=== PATIENT | female | born 1975 | race Caucasian/White ===

== ENCOUNTER 2025-01-07 10:15 | Outpatient (AMB) | payer OTHER, SELFPAY ==
--- NOTE | 2025-01-07 10:17 | MHC.PC.OV ---
Vital Signs 01/07/25 10:34 Height 5 ft 6 in Weight 187 lb 4 oz BMI 30.2 BP 118/76 Blood Pressure Location Lt brachial Position Sitting Pulse 77 Pulse Source Pulse Oximeter Pulse Oximetry (%) 98 Oxygen Delivery Method Room Air Intake Visit Reasons: establish care Technical Service Rep Required: No Accompanied by: Self / Same As Patient Allergies adhesive tape Allergy (Mild, Verified 01/07/25 11:09) Hives acetaminophen [From Percocet] Adverse Reaction (Verified 01/07/25 11:09) upset stomach oxycodone [From Percocet] Adverse Reaction (Verified 01/07/25 11:09) upset stomach Medication List - Last Reconciled 01/07/25 by Kwame Mcneil MD acetaminophen-codeine 300-30 mg 1 tab PO BID PRN azelaic acid 15% 1 appl topical BID betamethasone dipropionate 0.05% 1 appl topical DAILY rabjtsozqp-rybhuwnhrg-xwi-cod 68-086-35-30 mg 1 cap PO Q4H PRN gabapentin 100 mg PO TID hydrocortisone 2.5% 1 appl topical BID PRN hydroxyzine HCl 25 mg PO TID PRN ketoconazole 2% 1 appl topical DAILY lidocaine 5% 1 patch topical DAILY lorazepam 1 mg PO DAILY PRN naloxone 4 mg/actuation (Narcan) 4 mg intranasal Q2M PRN norethindrone (contraceptive) (Elzbieta) 0.35 mg PO DAILY propranolol 40 mg PO ONCE sertraline (Zoloft) 100 mg PO DAILY sumatriptan succinate 6 mg subcut ONCE PRN ubrogepant (Ubrelvy) 100 mg PO ONCE PRN Tobacco use date assessed: 01/07/25 Dental Screening Dental Screen Date: 01/07/25 Did you have a dental visit in the last 12 months?: Yes Did you have a dental problem in the last 6 months where you did not have access to dental care?: No Was dental information given to patient?: Patient has dentist HPI establish care HPI Details Patient comes in today to establish care - is a new patient to the practice States that her previous PCP recently retired from active practice States that she currently feels okay She denies any headaches or dizziness Denies any chest pains, no increased shortness of breath No nausea/vomiting, no abdominal pain No change in bowel habits noted She denies any acute urinary symptoms States that she has a history of anxiety and has been on Lorazepam for years She also reports (+) history of severe migraine headaches that requires medicating with Tylenol with codeine for her severe headaches States that she will need majority of her Rx refilled She is following up with [facility] for her migraine and is treated with Botox injections as well She goes to [facility] for her yearly gynecology exam and pap smear and states that she just had her last visit with them a couple of months ago in November 2024 She also goes to [facility] for her annual mammogram and will be due for her next mammogram in February 2025 - will need this ordered She has never had a screening colonoscopy done in the past [facility] Medical History (Updated 01/08/25 @ 02:21 by Kwame Mcneil MD) Obesity (BMI 30-39.9) Cervical disc disease Anxiety Dermatofibroma of right thigh Fibromyalgia Migraine Surgical History (Updated 01/07/25 @ 12:42 by Kwame Mcneil MD) History of wisdom tooth extraction History of surgical removal of skin lesion History of umbilical hernia repair History of tonsillectomy History of fusion of cervical spine Family History (Updated 01/07/25 @ 10:51 by ADDIE Walker) Other Autism Melanoma Social History (Updated 01/07/25 @ 12:47 by Kwame Mcneil MD) Housing: Condominium Patient Tobacco Use Status: Former Tobacco user e-Cigarette/Vaping Use: Never Used Substance Use Type: Other Substance Use Type Other:: Medical Marijuana and Gummies (not recreational) Substance Use Frequency: Daily Last Used Substance: Days (ago) Currently Displaying Signs/Symptoms of Drug Intoxication Withdrawal: No Within the last 12 months, any problems due to past substance use: None Current Diet: Vegetarian service: No Current occupational status: employed Cognitive needs: No Hearing needs: No Vision needs: No Questionnaire PHQ-9 Over the last 2 weeks, how often have you been bothered by any of the following problems? 1. Little interest or pleasure in doing things: several days 2. Feeling down, depressed, or hopeless: not at all 3. Trouble falling or staying asleep, or sleeping too much: several days 4. Feeling tired or having little energy: not at all 5. Poor appetite or overeating: not at all 6. Feeling bad about yourself - or that you are a failure or have let yourself or your family down: not at all 7. Trouble concentrating on things, such as reading the newspaper or watching television: not at all 8. Moving or speaking so slowly that other people could have noticed. Or the opposite - being so fidgety or restless that you have been moving around a lot more than usual: not at all 9. Thoughts that you would be better off or of hurting yourself in some way: not at all Total score: 2 Depression Screening Interpretation: Negative (is on Rx) Depression Screening Done: Yes 93983 - PHQ-9 Billing: Yes Source: Developed by Drs. Eliseo Casey, Cary Cordova, Prakash Savage and colleagues, with an educational anne from [employer]. Thrive Questionnaire Date Thrive assessed: 01/07/25 I am a: Patient What is your living situation today?: I have a steady place to live Within the past 12 months, did the food you bought not last and you didn't have the money to get more?: Never true Within the past 12 months, did you worry whether your food would run out before you got money to buy more?: Never true Do you have trouble paying for medicines?: No Do you have trouble getting transportation to medical appointments?: No Do you have trouble paying your heating and electricity bill?: No Do you have trouble taking care of your child, family member or friend?: No Do you have trouble with day-to-day activities such as bathing, preparing meals, shopping, managing finances, etc.?: No Are you currently unemployed and looking for a job?: No Are you interested in more education?: No Please select the resources that you would like help with: None Currently or been in a relationship where the following occur: I choose not to answer THRIVE Score: 0 AUDIT C Alcohol Use Questionnaire (AUDIT-C) 1. How often do you have a drink containing alcohol?: Never 3. How often do you have six or more drinks on one occasion?: Never Total Score: 0 Score Reviewed/Action Taken: Yes DANILO-7 AMB Questionnaire DANILO-7 Date DANILO - 7 assessed: 03/04/25 Feeling nervous, anxious, or on edge: 1 = Several days Not being able to stop or control worryin = More than half the days Worrying too much about different things: 0 = Not at all Trouble relaxin = Not at all Being so restless that it is hard to sit still: 0 = Not at all Becoming easily annoyed or irritable: 0 = Not at all Feeling afraid as if something awful might happen: 0 = Not at all Total DANILO-7 score (0-4 normal; 5-9 mild; 10-14 moderate; 15-21 severe): 3 Source: Developed by Drs. Eliseo Casey, Cary Cordova, Prakash Savage and colleagues, with an educational anne from [employer]. Review of Systems Const Denies chills, Denies fatigue, Denies fever(s), Reports headache(s) (migraine) and Denies malaise Eyes Denies blurry vision, Denies change in vision, Denies irritation and Denies itchy eyes ENT Denies dysphagia, Denies dizziness, Denies otalgia, Reports headache(s) (migraine), Denies nasal congestion, Reports neck pain (chronic), Denies odynophagia, Denies sinus pain and Denies sore throat Card Denies chest pain, Denies rapid heart rate, Denies irregular heart rhythm, Denies palpitations and Denies dyspnea Resp Denies chest congestion, Denies cough, Denies dyspnea and Denies wheezing GI Denies abdominal pain, Denies bloating, Denies constipation, Denies dysphagia, Denies heartburn, Denies diarrhea, Denies nausea, Denies odynophagia and Denies vomiting Denies hematuria, Denies urinary frequency, Denies dysuria, Denies urinary incontinence and Denies urinary urgency Musc Denies back pain, Reports myalgias (diffuse - due to her fibromyalgia), Denies arthralgias, Denies joint swelling, Denies muscle weakness and Reports neck pain (chronic) Skin/Breast Denies breast pain, Denies breast mass, Denies change in pigmentation, Denies lesions, Denies rash and Denies unusual bruising Neuro Denies dizziness, Reports headache(s) (migraine) and Denies paresthesias Psych Reports anxiety and Denies depression Endo Denies fatigue and Denies palpitations James/Lymph Denies easy bruising Aller/Immun Denies itchy eyes and Denies wheezing Physical exam (Primary Care) Vital Signs: Last Vital Signs Pulse 77 01/07/25 10:34 BP 118/76 01/07/25 10:34 Pulse Ox 98 01/07/25 10:34 Oxygen Delivery Method Room Air 01/07/25 10:34 BMI result Body Mass Index 30.2 Tobacco/Smoking Status: Tobacco use Status Tobacco use date assessed 01/07/25 01/07/25 10:18 Patient Tobacco Use Status Former Tobacco user 01/07/25 10:53 e-Cigarette/Vaping Use Never Used 01/07/25 10:53 PHQ-9: PHQ-9 Score PHQ-9: Total score 2 01/07/25 12:50 Depression Screening Interpretation: Negative (is on Rx) Thrive Assessment: Date of Thrive Assessment Date Thrive assessed 01/07/25 01/07/25 10:18 Currently or been in a relationship where the following occur: I choose not to answer Const General: no acute distress, alert and awake Orientation/consciousness: patient oriented x3 HENMT Head: Yes normocephalic and Yes atraumatic Ears: external ears normal, TM's normal bilaterally and EAC's normal General nose exam: No nasal discharge present Face and sinus: Yes normal facial exam and Yes sinuses nontender Teeth and gingiva: dentition normal Throat: Yes posterior oropharynx normal and Yes tonsils normal (no TP congestion) Eyes Eyelids: Yes eyelids normal Conjunctivae: conjunctivae normal Pupils: Equal, round and reactive pupils present EOM: EOMs intact bilaterally Neck Neck: No lymphadenopathy and Yes tender Thyroid: Thyroid normal Resp Auscultation: clear to auscultation bilaterally, no rales and no wheezes Cardio Rate: regular rate Rhythm: regular rhythm Heart sounds: no murmurs GI Palpation (GI): Soft to palpation, nontender and No hepatosplenomegaly present Auscultation: normal bowel sounds General: Yes no CVA tenderness Back/Spine/Pelvis Back: no CVA tenderness Cervical Spine: Cervical spine tenderness Thoracic/Lumbar Spine: No lumbar spinal tenderness Skin Lesions: no lesions Rashes: no rashes Neuro General: patient oriented x3, moves all extremities, no focal motor deficits and CN's II-XI intact bilaterally Cranial nerves: Yes Equal, round and reactive pupils present Cognition (Neuro): normal cognition Gait exam (Neuro): Normal gait present Extrem General: Yes no clubbing, cyanosis or edema Coding Level of Care Code New Pt Prev Care 40-64y(62391) Diagnoses Annual physical exam Z00.00 Migraine without status migrainosus, not intractable, unspecified migraine type G43.909 Intractability: not intractable Migraine type: unspecified Status migrainosus presence: without status migrainosus Cervical disc disease M50.90 Fibromyalgia M79.7 Anxiety F41.9 Obesity (BMI 30-39.9) E66.9 Colon cancer screening Z12.11 Additional Codes PHQ-9 - 51494 - PHQ-9 Billing: Yes ([id number]) Assessment & Plan Assessment & Plan (1) Annual physical exam: Code(s): Z00.00 - Encounter for general adult medical examination without abnormal findings Category: Medical Plan: Will have patient get her labs done in 3 months just before she returns for her next follow up appt She goes to [facility] for her yearly gynecology exam and pap smear and states that she just had her last visit with them a couple of months ago in November 2024 She also goes to [facility] for her annual mammogram and will be due for her next mammogram in February 2025 - will need this ordered She has never had a screening colonoscopy done in the past (2) Migraine: Code(s): G43.909 - Migraine, unspecified, not intractable, without status migrainosus Category: Medical Qualifiers: Intractability: not intractable Migraine type: unspecified Status migrainosus presence: without status migrainosus Qualified Code(s): G43.909 - Migraine, unspecified, not intractable, without status migrainosus Plan: Continue Tylenol with codeine 300-30 mg BID PRN, Fioricet with codeine 47-139-90-30 mg 1 capsule Q 4 to 6 hours PRN, Propranolol 40 mg QD, Sumatriptan 6 mg nasal spray PRN and Ubrelvy 100 mg PRN Patient also gets Botox injections from neurology regularly Follow up with neurology as scheduled (3) Cervical disc disease: Code(s): M50.90 - Cervical disc disorder, unspecified, unspecified cervical region Category: Medical Plan: (+) Hx of anterior cervical fusion from C4 to C7 Continue Gabapentin 100 mg TID and Lidocaine 5% patch QD PRN (4) Fibromyalgia: Code(s): M79.7 - Fibromyalgia Category: Medical Plan: Continue Gabapentin 100 mg TID (5) Anxiety: Code(s): F41.9 - Anxiety disorder, unspecified Category: Medical Plan: Continue Hydroxyzine 25 mg TID PRN, Lorazepam 1 mg QD PRN and Sertraline 100 mg QD (6) Obesity (BMI 30-39.9): Code(s): E66.9 - Obesity, unspecified Category: Medical Plan: Reinforced diet; exercise and weight loss are unrealistic at this time given patient's physical issues (7) Colon cancer screening: Code(s): Z12.11 - Encounter for screening for malignant neoplasm of colon Category: Medical Plan: Will refer her to GI for screening colonoscopy - this will be her index screening Plan Follow up in 3 months Orders: Orders Complete Blood Count Auto Diff 3 Months D64.9 - Anemia, unspecified, Z00.00 - Encounter for general adult medical examination without abnormal findings UA CC w/rflx Micro + Cult 3 Months R30.0 - Dysuria, Z00.00 - Encounter for general adult medical examination without abnormal findings Vitamin B12 and Folate 3 Months E53.8 - Deficiency of other specified B group vitamins, Z00.00 - Encounter for general adult medical examination without abnormal findings MM tomosynthesis [place] 0304 Z12.31 - Encounter for screening mammogram for malignant neoplasm of breast Comprehensive [place]. Panel Fast 3 Months E78.00 - Pure hypercholesterolemia, unspecified, Z00.00 - Encounter for general adult medical examination without abnormal findings Lipid Panel 3 Months E78.00 - Pure hypercholesterolemia, unspecified, Z00.00 - Encounter for general adult medical examination without abnormal findings TSH reflex Free T4 3 Months E78.00 - Pure hypercholesterolemia, unspecified, Z00.00 - Encounter for general adult medical examination without abnormal findings Vitamin D 25-OH Total 3 Months E55.9 - Vitamin D deficiency, unspecified, Z00.00 - Encounter for general adult medical examination without abnormal findings Referrals Gastroenterology Referral Z12.11 - Encounter for screening for malignant neoplasm of colon Medications: New acetaminophen-codeine 300-30 mg 1 tab PO BID PRN 60 tabs 0RF severe migraine headaches 30 days G43.909 - Migraine, unspecified, not intractable, without status migrainosus gabapentin 100 mg PO TID 90 caps 2RF 30 days lidocaine 5% leave on most painful area for up to 12 hrs 1 patch topical DAILY PRN 30 ea 2RF pain 30 days sertraline (Zoloft) 100 mg PO DAILY 90 tabs 0RF 90 days nycihoaszi-lqzheqeaup-cac-cod 45-016-54-30 mg 1 cap PO Q4-6H PRN 60 caps 1RF headaches hydroxyzine HCl 25 mg PO TID PRN 90 tabs 2RF anxiety 30 days lorazepam 1 mg PO DAILY PRN 30 tabs 0RF anxiety 30 days propranolol 40 mg PO DAILY 90 tabs 1RF 90 days
[2025-01-07 10:34] VITALS: BP 118/76; PULSE 77; O2SAT 98; BMI 30.2
--- OUTSIDE RECORDS SUMMARY | 2025-01-07 12:24 | XMS_ITS | Clinical Summary ---
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 3 Active betamethasone dipropionate (DIPROSONE) 0.05 % ointment APPLY A SMALL AMOUNT TWICE A DAY APPLY TO LEFT EYELID 3 Active butalbital-acetami nophen-caffeine 50-300-40 mg capsule TAKE 1 CAPSULE BY MOUTH EVERY 4 HOURS NEEDED FOR MIGRAINE HEADACHE 3 Active diclofenac potassium 50 mg powder in packet Take 1 packet by mouth daily as needed (Migraine). No more than 4 times per day 3 Active gabapentin (NEURONTIN) 300 mg capsule Take 3 capsules (900 mg total) by mouth 3 (three) times a day. 3 Active hydrocortisone (WESTCORT) 0.2 % cream APPLY SPARINGLY TO AFFECTED AREA TWICE A DAY 3 Active hydrOXYzine HCL (ATARAX) 25 mg tablet TAKE 1 TABLET BY MOUTH TWICE A DAY NEEDED 3 Active norethindrone (Incassia) 0.35 mg tablet Take 1 tablet (0.35 mg total) by mouth daily. 3 Active ketoconazole (NIZORAL) 2 % cream APPLY A SMALL AMOUNT ONCE A DAY 3 Active lidocaine (LIDODERM) 5 % patch APPLY 1 PATCH TOPICALLY AND LEAVE ON FOR 12 HOURS, THEN 12 HOURS OFF 3 Active LORazepam (ATIVAN) 1 mg tablet Take 0.5 mg by mouth 2 (two) times a day as needed. 3 Active methylPREDNISolone (MEDROL) 4 mg tablet follow package directions 3 Active naproxen sodium (ANAPROX) 550 mg tablet Take 1 tablet (550 mg total) by mouth 2 (two) times a day as needed. for pain 3 Active neomycin-bacitracn Zn-polymyxnB 3.5-500-10,000 rv-pdjk-vlqz ointment APPLY A SMALL AMOUNT THREE TIMES A DAY 3 Active ondansetron ODT (ZOFRAN-ODT) 4 mg disintegrating tablet DISSOLVE 1 TABLET ON THE TONGUE EVERY 6 TO 8 HOURS FOR NAUSEA AND VOMITING 3 Active propranoloL (INDERAL) 40 mg tablet Take 1 tablet (40 mg total) by mouth 3 (three) times a day as needed. 3 Active lasmiditan (Reyvow) 100 mg tablet Take 1 tablet by mouth daily as needed. 3 Active rizatriptan (MAXALT) 10 mg tablet Take 1 tablet (10 mg total) by mouth daily as needed for migraine. May repeat in 2 hours if needed. Do not take together with sumatriptan. 3 Active sertraline (ZOLOFT) 100 mg tablet Take 1 tablet (100 mg total) by mouth daily. 3 Active SUMAtriptan (IMITREX) 6 mg/0.5 mL subcutaneous solution Inject 0.5 mL (6 mg total) under the skin daily as needed (Migraine). 3 Active ubrogepant (Ubrelvy) 100 mg tablet Take 1 tablet by mouth daily as needed (Migraine). Can take second tablet two hours later if headache persists. No more than 2 in 24 hours or 4 in 7 days. 3 Active Active Problems Problem Noted Date Diagnosed Date Bilateral occipital neuralgia 06/27/2023 Intractable chronic migraine without aura and with status migrainosus 02/17/2023 Social History Tobacco Use Types Packs/Day Years Used Date Smoking Tobacco: Never Assessed Comments Unknown Sex and Gender Information Value Date Recorded Sex Assigned at Not on file Legal Sex Female 6:44 PM EST Gender Identity Not on file Sexual Orientation Not on file Obstetrics History Last Filed Vital Signs Vital Sign Reading Time Taken Comments Blood Pressure 114/84 09/03/2024 1:03 PM EDT Pulse 72 09/03/2024 1:03 PM EDT Temperature - - Respiratory Rate - - Oxygen Saturation - - Inhaled Oxygen Concentration - - Weight - - Height - - Body Mass Index - - Plan of Treatment Health Maintenance Due Date Last Done Comments Breast Cancer Screening 1977 DTaP,Tdap,and Td Vaccines (1 - Tdap) 02/13/1996 Hepatitis B Vaccines (1 of 3 - 19+ 3-dose series) 02/13/1996 Cervical Cancer Screening: P ap Smear 1998 Colorectal Cancer Screening: Colonoscopy 10/08/2022 Depression Screening 10/08/2022 HIV Screening 10/08/2022 Hepatitis C Screening 10/08/2022 Social Influencers of Health Screening 10/08/2022 COVID-19 Vaccine (2023-2 5 season) 2024 Influenza Vaccine (#1) 2024 HIB Vaccines Aged Out No longer eligi ble based on patient's age to complete this topic HPV Vaccines Aged Out No longer eligi ble based on patient's age to complete this topic Hepatitis A Vaccines Aged Out No long er eligible based on patient's age to complete this topic IPV Vaccines Aged Out No longer eligi ble based on patient's age to complete this topic MMR Vaccines Aged Out No longer eligi ble based on patient's age to complete this topic Meningococcal ACWY Vaccine Aged Out N o longer eligible based on patient's age to complete this topic Meningococcal B Vacine Aged Out No lo nger eligible based on patient's age to complete this topic Pneumococcal Vaccine: Pediat rics (0 to 5 Years) and At-Risk Patients (6 to 64 Years) Aged Out No longer eligible b ased on patient's age to complete this topic RSV Immunization Patients Un jarod 20 months Aged Out No longer eligible b ased on patient's age to complete this topic Varicella Vaccines Aged Out No longer eligible based on patient's age to complete this topic
--- OUTSIDE RECORDS SUMMARY | 2025-01-07 12:24 | XMS_ITS | Clinical Summary ---
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 0 12/12/2022 Active hydrocortisone (WESTCORT) 0.2 % cream APPLY SPARINGLY TO AFFECTED AREA TWICE A DAY 0 12/22/2022 Active hydrOXYzine (ATARAX) 25 MG tablet TAKE 1 TABLET BY MOUTH TWICE A DAY NEEDED 0 01/09/2023 Active ketoconazole (NIZORAL) 2 % cream APPLY A SMALL AMOUNT ONCE A DAY 0 01/10/2023 Active Reyvow 100 MG TABS Take 1 tablet by mouth daily as needed. 0 12/19/2022 Active lidocaine (LIDODERM) 5 % APPLY 1 PATCH TOPICALLY AND LEAVE ON FOR 12 HOURS, THEN 12 HOURS OFF 0 01/31/2023 Active LORazepam (ATIVAN) 1 MG tablet Take 0.5 mg by mouth 2 (two) times a day as needed. 0 01/10/2023 Active naproxen sodium (ANAPROX) 550 MG tablet Take 1 tablet (550 mg total) by mouth 2 (two) times a day as needed. for pain 0 01/10/2023 Active Hquerwxr-Gctahooowm-Kh lymyxin ([employer] Antibiotic) 3.5-400-5000 OINT APPLY A SMALL AMOUNT THREE TIMES A DAY 0 01/12/2023 Active Incassia 0.35 MG tablet Take 1 tablet (0.35 mg total) by mouth daily. 0 12/03/2022 Active ondansetron (ZOFRAN-ODT) 4 MG disintegrating tablet DISSOLVE 1 TABLET ON THE TONGUE EVERY 6 TO 8 HOURS FOR NAUSEA AND VOMITING 0 12/16/2022 Active propranolol (INDERAL) 40 MG tablet Take 1 tablet (40 mg total) by mouth 3 (three) times a day as needed. 0 12/28/2022 Active sertraline (ZOLOFT) 100 MG tablet Take 1 tablet (100 mg total) by mouth daily. 0 02/08/2023 Active Acetaminophen-Codeine 300-30 MG per tablet TAKE 1 TABLET BY MOUTH THREE TIMES A DAY NEEDED FOR PAIN 0 01/19/2023 Active Diclofenac Potassium,Migraine, (Cambia) 50 MG PACKIndications:Intrac table chronic migraine without aura and with status migrainosus Take 1 packet by mouth daily as needed (Migraine). No more than 4 times per day 9 each 1 02/16/2023 Active Atogepant (Qulipta) 60 MG TABSIndications:Intrac table migraine without aura and without status migrainosus Take 1 tablet by mouth daily. 30 tablet 2 08/14/2023 Active Ubrelvy 100 MG TABSIndications:Migrai ne variant TAKE 1 TABLET BY MOUTH DAILY NEEDED (MIGRAINE). CAN TAKE SECOND TABLET TWO HOURS LATER IF HEADACHE PERSISTS. NO MORE THAN 2 IN 24 HOURS OR 4 IN 7 DAYS. 14 tablet 2 04/02/2024 Active SUMAtriptan Succinate (IMITREX) 6 MG/0.5ML SOAJIndications:Intrac table migraine without aura and without status migrainosus INJECT 0.5 ML (6 MG TOTAL) UNDER THE SKIN DAILY NEEDED. 5 mL 2 06/05/2024 Active Active Problems Problem Noted Date Diagnosed Date Bilateral occipital neuralgia 06/27/2023 Intractable chronic migraine without aura and with status migrainosus 02/17/2023 Social History Tobacco Use Types Packs/Day Years Used Date Smoking Tobacco: Never Assessed Sex and Gender Information Value Date Recorded Sex Assigned at Not on file Gender Identity Not on file Sexual Orientation Not on file Job Start Date Occupation Industry Not on file Not on file Not on file Last Filed Vital Signs Vital Sign Reading Time Taken Comments Blood Pressure 114/84 09/03/2024 1:03 PM EDT Pulse 72 09/03/2024 1:03 PM EDT Temperature - - Respiratory Rate - - Oxygen Saturation 98% 09/03/2024 1:03 PM EDT Inhaled Oxygen Concentration - - Weight - - Height - - Body Mass Index - - Plan of Treatment Health Maintenance Due Date Last Done Comments Hepatitis B Vaccines (1 of 3 - 3-dose series) 1977 Hepatitis C Screening 1977 COVID-19 Vaccine (#1) 1977 Depression Screening 1989 Preventative Health Evaluation 1995 Cervical Cancer Screening (P ap Smear) 1998 DTap / Tdap / Td (2 - Td or Tdap) 10/03/2020 010 Colon Cancer Screening (Colonoscopy) 2022 Influenza Vaccine (#1) 2024 08/21/2018 Pneumococcal Vaccine Aged Out No long er eligible based on patient's age to complete this topic RSV Ped < 20 months Aged Out No longe r eligible based on patient's age to complete this topic
== END 2025-01-07 11:42 | disposition home or self-care (01) ==
PROVIDERS: Visit Provider Internal Medicine
DX: Z00.00 Encounter for general adult medical examination without abnormal findings (principal); G43.909 Migraine, unspecified, not intractable, without status migrainosus; E66.9 Obesity, unspecified; Z68.30 Body mass index [BMI] 30.0-30.9, adult; M50.90 Cervical disc disorder, unspecified, unspecified cervical region; M79.7 Fibromyalgia; F41.9 Anxiety disorder, unspecified; Z12.11 Encounter for screening for malignant neoplasm of colon

== ENCOUNTER → 2025-01-07 10:15 | Outpatient (BNVA) | payer OTHER, SELFPAY | PROVIDERS: Visit Provider Internal Medicine | DX: Z00.00 Encounter for general adult medical examination without abnormal findings (principal); G43.909 Migraine, unspecified, not intractable, without status migrainosus; M50.90 Cervical disc disorder, unspecified, unspecified cervical region; M79.7 Fibromyalgia; F41.9 Anxiety disorder, unspecified; E66.9 Obesity, unspecified | CPT/HCPCS: 96127; 99386 ==

== ENCOUNTER 2025-06-03 10:43 | Outpatient (AMB) | payer OTHER, SELFPAY ==
--- NOTE | 2025-06-03 10:45 | MHC.PC.OV ---
Vital Signs 06/03/25 10:46 Height 5 ft 6 in Weight 188 lb BMI 30.3 BP 116/78 Blood Pressure Location Lt brachial Position Sitting Pulse 87 Pulse Source Pulse Oximeter Pulse Oximetry (%) 96 Oxygen Delivery Method Room Air Intake Visit Reasons: 3 month f/u Almond Huller Required: No Accompanied by: Self / Same As Patient Allergies adhesive tape Allergy (Mild, Verified 06/03/25 11:02) Hives acetaminophen (From Percocet) Adverse Reaction (Verified 06/03/25 11:02) upset stomach oxycodone (From Percocet) Adverse Reaction (Verified 06/03/25 11:02) upset stomach Medication List - Last Reconciled 06/03/25 by Kwame Mcneil MD acetaminophen-codeine 300-30 mg 1 tab PO BID PRN 30 days azelaic acid 15% 1 appl topical BID betamethasone dipropionate 0.05% 1 appl topical DAILY waigknakua-cszqcmbvzv-shs-cod 12-980-80-30 mg 1 cap PO Q4-6H PRN gabapentin 300 mg PO TID hydrocortisone 2.5% 1 appl topical BID PRN hydroxyzine HCl 25 mg PO TID PRN 30 days ketoconazole 2% 1 appl topical DAILY lidocaine 5% 1 patch topical DAILY PRN 30 days lorazepam 1 mg PO DAILY PRN 30 days naloxone 4 mg/actuation (Narcan) 4 mg intranasal Q2M PRN norethindrone (contraceptive) (Elzbieta) 0.35 mg PO DAILY propranolol 40 mg PO DAILY 90 days sertraline (Zoloft) 100 mg PO DAILY 90 days sumatriptan succinate 6 mg subcut ONCE PRN ubrogepant (Ubrelvy) 100 mg PO ONCE PRN Tobacco use date assessed: 06/03/25 Dental Screening Dental Screen Date: 06/03/25 Did you have a dental visit in the last 12 months?: Yes Did you have a dental problem in the last 6 months where you did not have access to dental care?: No Was dental information given to patient?: Patient has dentist HPI 3 month f/u HPI Details Patient comes in today for her follow up visit States that she feels okay She denies any increased headaches or dizziness lately - states that her current migraine meds (Ubrelvy, Fioricet, Propranolol and Imitrex injections) help keep her headaches well-managed/controlled She continues to follow up with her neurologist (Dr. Barrios) in [place], [place], who is with [facility], regularly for her headaches Denies any chest pains, no increased shortness of breath No nausea/vomiting, no abdominal pain No change in bowel habits noted Patient states that she had her labs done at [facility] a few months ago and that all of her results came back normal except for a slightly elevated serum triglyceride level She was seen by [facility] for her precolonoscopy visit last month and was reportedly advised that they will reach out to her when she is scheduled for her screening colonoscopy - was supposedly advised that they are booking about 8 to 10 months out She is requesting for a refill on her Fioricet and to have a PA done if necessary - states that she takes this only on an as-needed basis [facility] Medical History Obesity (BMI 30-39.9) Cervical disc disease Anxiety Dermatofibroma of right thigh Fibromyalgia Migraine Surgical History History of wisdom tooth extraction History of surgical removal of skin lesion History of umbilical hernia repair History of tonsillectomy History of fusion of cervical spine Family History Other Autism Melanoma Social History Housing: Condominium Patient Tobacco Use Status: Former Tobacco user e-Cigarette/Vaping Use: Never Used Substance Use Type: Other service: No Current occupational status: employed Cognitive needs: No Hearing needs: No Vision needs: No Questionnaire PHQ-9 Over the last 2 weeks, how often have you been bothered by any of the following problems? 1. Little interest or pleasure in doing things: several days 2. Feeling down, depressed, or hopeless: several days 3. Trouble falling or staying asleep, or sleeping too much: several days 4. Feeling tired or having little energy: not at all 5. Poor appetite or overeating: not at all 6. Feeling bad about yourself - or that you are a failure or have let yourself or your family down: not at all 7. Trouble concentrating on things, such as reading the newspaper or watching television: not at all 8. Moving or speaking so slowly that other people could have noticed. Or the opposite - being so fidgety or restless that you have been moving around a lot more than usual: not at all 9. Thoughts that you would be better off or of hurting yourself in some way: not at all Total score: 3 Depression Screening Interpretation: Negative (is on Rx) Depression Screening Done: Yes 73834 - PHQ-9 Billing: Yes Source: Developed by Drs. Eliseo Casey, Cary Cordova, Prakash Savage and colleagues, with an educational anne from [employer]. Thrive Questionnaire Date Thrive assessed: 06/03/25 I am a: Patient What is your living situation today?: I have a steady place to live Within the past 12 months, did the food you bought not last and you didn't have the money to get more?: Never true Within the past 12 months, did you worry whether your food would run out before you got money to buy more?: Never true Do you have trouble paying for medicines?: No Do you have trouble getting transportation to medical appointments?: No Do you have trouble paying your heating and electricity bill?: No Do you have trouble taking care of your child, family member or friend?: No Do you have trouble with day-to-day activities such as bathing, preparing meals, shopping, managing finances, etc.?: No Are you currently unemployed and looking for a job?: No Are you interested in more education?: No Please select the resources that you would like help with: None Currently or been in a relationship where the following occur: I choose not to answer THRIVE Score: 0 AUDIT C Alcohol Use Questionnaire (AUDIT-C) 1. How often do you have a drink containing alcohol?: Never 3. How often do you have six or more drinks on one occasion?: Never Total Score: 0 Score Reviewed/Action Taken: Yes DANILO-7 AMB Questionnaire DANILO-7 Date DANILO - 7 assessed: 06/03/25 Feeling nervous, anxious, or on edge: 1 = Several days Not being able to stop or control worryin = More than half the days Worrying too much about different things: 0 = Not at all Trouble relaxin = Not at all Being so restless that it is hard to sit still: 0 = Not at all Becoming easily annoyed or irritable: 0 = Not at all Feeling afraid as if something awful might happen: 0 = Not at all Total DANILO-7 score (0-4 normal; 5-9 mild; 10-14 moderate; 15-21 severe): 3 Source: Developed by Drs. Eliseo Casey, Cary Cordova, Prakash Savage and colleagues, with an educational anne from [employer]. Review of Systems Const Denies chills, Denies fatigue, Denies fever(s) and Reports headache(s) (migraine) ENT Denies dysphagia, Denies dizziness, Denies otalgia, Reports headache(s) (migraine), Reports neck pain (chronic), Denies odynophagia and Denies sore throat Card Denies chest pain, Denies rapid heart rate, Denies irregular heart rhythm, Denies palpitations and Denies dyspnea Resp Denies chest congestion, Denies cough and Denies dyspnea GI Denies abdominal pain, Denies constipation, Denies dysphagia, Denies heartburn, Denies diarrhea, Denies nausea, Denies odynophagia and Denies vomiting Denies difficulty voiding, Denies nocturia, Denies dysuria and Denies urinary urgency Musc Denies back pain, Reports myalgias (diffuse - due to her fibromyalgia), Denies arthralgias and Reports neck pain (chronic) Skin/Breast Denies rash Neuro Denies dizziness, Reports headache(s) (migraine) and Denies paresthesias Psych Reports anxiety and Denies depression Endo Denies fatigue and Denies palpitations James/Lymph Denies easy bruising Physical exam (Primary Care) Vital Signs: Last Vital Signs Pulse 87 06/03/25 10:46 BP 116/78 06/03/25 10:46 Pulse Ox 96 06/03/25 10:46 Oxygen Delivery Method Room Air 06/03/25 10:46 BMI result Body Mass Index 30.3 Tobacco/Smoking Status: Tobacco use Status Tobacco use date assessed 06/03/25 06/03/25 10:52 Patient Tobacco Use Status Former Tobacco user 06/03/25 10:52 e-Cigarette/Vaping Use Never Used 06/03/25 10:52 PHQ-9: PHQ-9 Score PHQ-9: Total score 2 06/03/25 10:52 Depression Screening Interpretation: Negative (is on Rx) Thrive Assessment: Date of Thrive Assessment Date Thrive assessed 06/03/25 06/03/25 10:52 Currently or been in a relationship where the following occur: I choose not to answer Const General: no acute distress and alert HENMT Ears: TM's normal bilaterally and EAC's normal Throat: Yes posterior oropharynx normal and Yes tonsils normal (no TP congestion) Neck Neck: No lymphadenopathy and Yes tender Thyroid: Thyroid normal Resp Auscultation: clear to auscultation bilaterally, no rales and no wheezes Cardio Rate: regular rate Rhythm: regular rhythm Heart sounds: no murmurs GI Palpation (GI): Soft to palpation and nontender Auscultation: normal bowel sounds General: Yes no CVA tenderness Back/Spine/Pelvis Back: no CVA tenderness Cervical Spine: Cervical spine tenderness Thoracic/Lumbar Spine: No lumbar spinal tenderness Skin Rashes: no rashes Extrem General: Yes no clubbing, cyanosis or edema Coding Level of Care Code Est Pt Level 4 (10624) Diagnoses Migraine without status migrainosus, not intractable, unspecified migraine type G43.909 Migraine type: unspecified Status migrainosus presence: without status migrainosus Intractability: not intractable Hypertriglyceridemia E78.1 Cervical disc disease M50.90 Fibromyalgia M79.7 Anxiety F41.9 Obesity (BMI 30-39.9) E66.9 Additional Codes PHQ-9 - 13081 - PHQ-9 Billing: Yes ([id number]) Assessment & Plan Assessment & Plan (1) Migraine: Code(s): G43.909 - Migraine, unspecified, not intractable, without status migrainosus Category: Medical Qualifiers: Migraine type: unspecified Status migrainosus presence: without status migrainosus Intractability: not intractable Qualified Code(s): G43.909 - Migraine, unspecified, not intractable, without status migrainosus Plan: Continue Tylenol with codeine 300-30 mg BID PRN, Fioricet with codeine 66-519-30-30 mg 1 capsule Q 4 to 6 hours PRN (Rx refilled per request), Propranolol 40 mg QD, Sumatriptan 6 mg SQ injection PRN and Ubrelvy 100 mg PRN Patient also gets Botox injections from neurology regularly Follow up with neurology (Dr. Barrios in [place], [place]) as scheduled (2) Hypertriglyceridemia: Code(s): E78.1 - Pure hyperglyceridemia Category: Medical Plan: Patient reported that her serum triglyceride level was elevated on her recent labs done at [facility]; the rest of her labs are all normal Discussed low cbolesterol diet - she recalls drinking some 'energy drinks' the night before she went for her labs a couple of months ago so that may have affected her cholesterol levels adversely on her recent labs Will have patient recheck her labs and fasting lipids in January 2026 before she returns for her annual physical exam then (3) Cervical disc disease: Code(s): M50.90 - Cervical disc disorder, unspecified, unspecified cervical region Category: Medical Plan: (+) Hx of anterior cervical fusion from C4 to C7 Continue Gabapentin 100 mg to 300 mg TID and Lidocaine 5% patch QD PRN (4) Fibromyalgia: Code(s): M79.7 - Fibromyalgia Category: Medical Plan: Continue Gabapentin 100 mg to 300 mg TID Patient states that she is now seeing [facility] for her pain management and that they are currently working her up again for her fibromyalgia (5) Anxiety: Code(s): F41.9 - Anxiety disorder, unspecified Category: Medical Plan: Continue Hydroxyzine 25 mg TID PRN, Lorazepam 1 mg QD PRN and Sertraline 100 mg QD (6) Obesity (BMI 30-39.9): Code(s): E66.9 - Obesity, unspecified Category: Medical Plan: Reinforced diet; exercise and weight loss are unrealistic at this time given patient's physical issues Plan To return in January 2026 for her next annual physical examination Orders: Orders Complete Blood Count Auto Diff 01/04/26 D64.9 - Anemia, unspecified, Z00.00 - Encounter for general adult medical examination without abnormal findings Comprehensive Howard. Panel Fast 01/04/26 E78.00 - Pure hypercholesterolemia, unspecified, Z00.00 - Encounter for general adult medical examination without abnormal findings Lipid Panel 01/04/26 E78.00 - Pure hypercholesterolemia, unspecified, Z00.00 - Encounter for general adult medical examination without abnormal findings TSH reflex Free T4 01/04/26 E78.00 - Pure hypercholesterolemia, unspecified, Z00.00 - Encounter for general adult medical examination without abnormal findings UA CC w/rflx Micro + Cult 01/04/26 R30.0 - Dysuria, Z00.00 - Encounter for general adult medical examination without abnormal findings Vitamin D 25-OH Total 01/04/26 E55.9 - Vitamin D deficiency, unspecified, Z00.00 - Encounter for general adult medical examination without abnormal findings Medications: Changed From gabapentin 100 mg PO TID 30 days 90 caps 2RF To gabapentin 300 mg PO TID Refilled rbxgnivroa-mixyvqjzhz-tbo-cod 48-726-10-30 mg 1 cap PO Q4-6H PRN 60 caps 1RF headaches
[2025-06-03 10:46] VITALS: BP 116/78; PULSE 87; O2SAT 96; BMI 30.3
--- OUTSIDE RECORDS SUMMARY | 2025-06-03 11:51 | XMS_ITS ---
Author Name [facility] Organization Unknown History of Medication Use Medication Directions Dispensed Refills Start Date End Date Stat SUMAtriptan (IMITREX) 6 mg/0.5 mL subcutaneous solution Inject 0.5 mL (6 mg total) under the skin daily as needed (Migraine). 11/01/2023 active ubrogepant (Ubrelvy) 100 mg tablet Take 1 tablet by mouth daily as needed (Migraine). Can take second tablet two hours later if headache persists. No more than 2 in 24 hours or 4 in 7 days. 09/22/2023 active methylPREDNISolone (MEDROL) 4 mg tablet follow package directions 08/25/2023 active rizatriptan (MAXALT) 10 mg tablet Take 1 tablet (10 mg total) by mouth daily as needed for migraine. May repeat in 2 hours if needed. Do not take together with sumatriptan. 08/25/2023 active atogepant (Qulipta) 60 mg tablet Take 1 tablet by mouth daily. 08/14/2023 active diclofenac potassium 50 mg powder in packet Take 1 packet by mouth daily as needed (Migraine). No more than 4 times per day 02/16/2023 active sertraline (ZOLOFT) 100 mg tablet Take 1 tablet (100 mg total) by mouth daily. 02/08/2023 active butalbital-acetaminophen -caffeine 50-300-40 mg capsule TAKE 1 CAPSULE BY MOUTH EVERY 4 HOURS NEEDED FOR MIGRAINE HEADACHE 02/07/2023 active betamethasone dipropionate (DIPROSONE) 0.05 % ointment APPLY A SMALL AMOUNT TWICE A DAY APPLY TO LEFT EYELID 01/31/2023 active lidocaine (LIDODERM) 5 % patch APPLY 1 PATCH TOPICALLY AND LEAVE ON FOR 12 HOURS, THEN 12 HOURS OFF 01/31/2023 active acetaminophen-codeine (TYLENOL #3) 300-30 mg per tablet TAKE 1 TABLET BY MOUTH THREE TIMES A DAY NEEDED FOR PAIN 01/19/2023 active gqipnccq-xrriszafeOl-wfw ymyxnB 3.5-500-10,000 fy-jpmj-uffw ointment APPLY A SMALL AMOUNT THREE TIMES A DAY 01/12/2023 active ketoconazole (NIZORAL) 2 % cream APPLY A SMALL AMOUNT ONCE A DAY 01/10/2023 active LORazepam (ATIVAN) 1 mg tablet Take 0.5 mg by mouth 2 (two) times a day as needed. 01/10/2023 active naproxen sodium (ANAPROX) 550 mg tablet Take 1 tablet (550 mg total) by mouth 2 (two) times a day as needed. for pain 01/10/2023 active hydrOXYzine HCL (ATARAX) 25 mg tablet TAKE 1 TABLET BY MOUTH TWICE A DAY NEEDED 01/09/2023 active propranoloL (INDERAL) 40 mg tablet Take 1 tablet (40 mg total) by mouth 3 (three) times a day as needed. 12/28/2022 active hydrocortisone (WESTCORT) 0.2 % cream APPLY SPARINGLY TO AFFECTED AREA TWICE A DAY 12/22/2022 active lasmiditan (Reyvow) 100 mg tablet Take 1 tablet by mouth daily as needed. 12/19/2022 active ondansetron ODT (ZOFRAN-ODT) 4 mg disintegrating tablet DISSOLVE 1 TABLET ON THE TONGUE EVERY 6 TO 8 HOURS FOR NAUSEA AND VOMITING 12/16/2022 active gabapentin (NEURONTIN) 300 mg capsule Take 3 capsules (900 mg total) by mouth 3 (three) times a day. 12/12/2022 active norethindrone (Incassia) 0.35 mg tablet Take 1 tablet (0.35 mg total) by mouth daily. 12/03/2022 active Problems Problem Status Onset Date Problem Type Date of Resoluti on Source Intractable chronic migraine without aura and with status migrainosus active 2023-02-17 ProblemAct [facility] Bilateral occipital neuralgia active 2023-06-27 ProblemAct [facility] Encounters Encounter Type Encounter Reason Primary Diagnosis Location Date Ambulatory [facility] 03/25/2025 Ambulatory [facility] 09/03/2024 Care Team Organization Name Specialty Phone Email Start Date End Da te [facility] 09/2024 [facility] 06/2024
--- OUTSIDE RECORDS SUMMARY | 2025-06-03 11:51 | XMS_ITS | Clinical Summary ---
Author Organization [address] [place] Address [address] [place] [address] Phone Care Team Providers Care Booster Station Operator Name Role Phone Kwame Mcneil MD Primary Care Provider [phone] Allergies No known active allergies Medications acetaminophen-code [...] for pain 3 Active neomycin-bacitracn Zn-polymyxnB 3.5-500-10,000 vf-ddvu-zvco ointment APPLY A SMALL AMOUNT THREE TIMES [...] skin daily as needed (Migraine). 3 Active Ubrelvy 100 mg tabletIndications: Other migraine, not intractable, without status migrainosus TAKE 1 TABLET BY MOUTH DAILY NEEDED (MIGRAINE). CAN TAKE SECOND TABLET TWO HOURS LATER IF HEADACHE PERSISTS. NO MORE THAN 2 IN 24 HOURS OR 4 IN 7 DAYS. 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 02/17/2023 Encounters Date Type Department Care Team Description 03/25/2025 11:00 AM EDT Procedure visit Neurology [address] [place] [address] Boby Domínguez MD Bilateral occipital neuralgia (Primary Dx) from Last 3 Months Social History Tobacco Use Types Packs/Day Years [...] Mass Index - - Plan of Treatment Upcoming Encounters Date Type Department Care Team (Late st Contact Info) Description 06/17/2025 11:20 AM EDT Procedure visit Neurology [address] [place] [address] Boby Domínguez MD [address] [place] [address] [place] [phone] 09/23/2025 11:00 AM EST Procedure visit Neurology [address] [place] [address] Boby Domínguez MD [address] [place] [address] [place] [address] [phone] Health Maintenance Due Date Last Done Comments Breast Cancer Screening 1977 Hepatitis B Vaccines (1 of 3 - 19+ 3-dose series) 02/13/1996 Cervical Cancer Screening: P ap Smear 1998 DTaP,Tdap,and Td Vaccines (2 - Td or Tdap) 10/03/2020 10/03/2010 Colorectal Cancer Screening: Colonoscopy 10/08/2022 HIV Screening 10/08/2022 Hepatitis C Screening 10/08/2022 Social Influencers of Health Screening 10/08/2022 COVID-19 Vaccine (3 - 2023-2 5 season) 2024 04/27/2021, 04/06/2021 Depression Screening 11/06/2024 Influenza Vaccine (#1) 2025 , 11/26/2019, 08/21/2018 Cholesterol Screening (Lipid Panel) 05/20/2030 05/20/2025 HIB Vaccines Aged Out No longer eligi [...] age to complete this topic Meningococcal B Vaccine Aged Out No l onger eligible based on patient's age to complete this topic Pneumococcal Vaccine: Pediatrics (0 to 5 Years) and At-Risk Patients (6 to 49 Years) Aged Out No longer eligible b ased on patient's age to complete this topic RSV Immunization Patients Under 20 months Aged Out No longer eligible b ased on patient's age to complete this topic Varicella Vaccines Aged Out No longer eligible based on patient's age to complete this topic Procedures Procedure Name Priority Date/Time Associated Diagnosis Comments DE LA TORRE URINE CULTURE TUBE Routine 05/20/20 10:43 AM EDT Pure hypercholesterolemia Encounter for general adult medical examination without abnormal findings Anemia, unspecified Vitamin D deficiency, unspecified Dysuria Deficiency of other specified B group vitamins CBC WITH AUTO DIFFERENTIAL Routine 05/20/2025 10:25 AM EDT Pure hypercholesterolemia Encounter for general adult medical examination without abnormal findings Anemia, unspecified Vitamin D deficiency, unspecified Dysuria Deficiency of other specified B group vitamins Intractable chronic migraine without aura Amplified musculoskeletal pain URINALYSIS WITH REFLEX MICROSCOPIC AND CULTURE Routine 05/20/2025 10:25 AM EDT Pure hypercholesterolemia Encounter for general adult medical examination without abnormal findings Anemia, unspecified Vitamin D deficiency, unspecified Dysuria Deficiency of other specified B group vitamins LIPID PANEL WITH REFLEX TO DIRECT LDL Routine 05/20/2025 10:25 AM EDT Pure hypercholesterolemia Encounter for general adult medical examination without abnormal findings Anemia, unspecified Vitamin D deficiency, unspecified Dysuria Deficiency of other specified B group vitamins VITAMIN B12 AND FOLATE Routine 10:25 AM EDT Pure hypercholesterolemia Encounter for general adult medical examination without abnormal findings Anemia, unspecified Vitamin D deficiency, unspecified Dysuria Deficiency of other specified B group vitamins THYROID STIMULATING HORMONE WITH REFLEX TO FREE T4 AND FREE T3 Routine 05/20/2025 10:25 AM EDT Pure hypercholesterolemia Encounter for general adult medical examination without abnormal findings Anemia, unspecified Vitamin D deficiency, unspecified Dysuria Deficiency of other specified B group vitamins THYROID STIMULATING HORMONE Routine 05/20/2025 10:25 AM EDT Pure hypercholesterolemia Encounter for general adult medical examination without abnormal findings Anemia, unspecified Vitamin D deficiency, unspecified Dysuria Deficiency of other specified B group vitamins Intractable chronic migraine without aura Amplified musculoskeletal pain TRIIODOTHYRONINE TOTAL Routine 10:25 AM EDT Pure hypercholesterolemia Encounter for general adult medical examination without abnormal findings Anemia, unspecified Vitamin D deficiency, unspecified Dysuria Deficiency of other specified B group vitamins Intractable chronic migraine without aura Amplified musculoskeletal pain THYROXINE TOTAL Routine 05/20/2025 10:25 AM EDT Pure hypercholesterolemia Encounter for general adult medical examination without abnormal findings Anemia, unspecified Vitamin D deficiency, unspecified Dysuria Deficiency of other specified B group vitamins Intractable chronic migraine without aura Amplified musculoskeletal pain SEDIMENTATION RATE Routine 05/20/2025 10 :25 AM EDT Pure hypercholesterolemia Encounter for general adult medical examination without abnormal findings Anemia, unspecified Vitamin D deficiency, unspecified Dysuria Deficiency of other specified B group vitamins Intractable chronic migraine without aura Amplified musculoskeletal pain VITAMIN B12 Routine 05/20/2025 10:25 AM EDT Pure hypercholesterolemia Encounter for general adult medical examination without abnormal findings Anemia, unspecified Vitamin D deficiency, unspecified Dysuria Deficiency of other specified B group vitamins Intractable chronic migraine without aura Amplified musculoskeletal pain VITAMIN D 25 HYDROXY Routine 05/20/2025 10:25 AM EDT Pure hypercholesterolemia Encounter for general adult medical examination without abnormal findings Anemia, unspecified Vitamin D deficiency, unspecified Dysuria Deficiency of other specified B group vitamins Intractable chronic migraine without aura Amplified musculoskeletal pain CBC AND DIFFERENTIAL Routine 05/20/2025 10:25 AM EDT Pure hypercholesterolemia Encounter for general adult medical examination without abnormal findings Anemia, unspecified Vitamin D deficiency, unspecified Dysuria Deficiency of other specified B group vitamins Intractable chronic migraine without aura Amplified musculoskeletal pain COMPREHENSIVE METABOLIC PANEL Routine 05/20/2025 10:25 AM EDT Pure hypercholesterolemia Encounter for general adult medical examination without abnormal findings Anemia, unspecified Vitamin D deficiency, unspecified Dysuria Deficiency of other specified B group vitamins Intractable chronic migraine without aura Amplified musculoskeletal pain BORRELIA BURGDORFERI ANTIBODY Routine 05/20/2025 10:25 AM EDT Pure hypercholesterolemia Encounter for general adult medical examination without abnormal findings Anemia, unspecified Vitamin D deficiency, unspecified Dysuria Deficiency of other specified B group vitamins Intractable chronic migraine without aura Amplified musculoskeletal pain URINALYSIS WITH REFLEX MICROSCOPIC AND CULTURE Routine 05/20/2025 10:25 AM EDT Pure hypercholesterolemia Encounter for general adult medical examination without abnormal findings Anemia, unspecified Vitamin D deficiency, unspecified Dysuria Deficiency of other specified B group vitamins from Last 3 Months Results * De La Torre urine culture tube (05/20/2025 10:43 AM EDT) Extra Tube Hold for add-ons. 05/20/2025 12:01 PM EDT [facility] Comment:Auto resulted. Urine Urine specimen obtained by clean catch procedure / Unknown Non-blood Collection / Unknown 05/20/2025 10:43 AM EDT 05/20/2025 10:43 AM EDT us Kwame Mcneil MD LAB URINE ORDERABLES Final R esult [facility] [address] [place] [address], [place] [phone] * Urinalysis with reflex microscopic and culture (05/20/2025 10:25 AM EDT) Specific Purvis Urine 1.014 1.003 - 1.030 LAB URINALYSIS - AUTOMATED METHOD 05/20/2025 12:08 PM [facility] pH, Urine 7.0 5.0 - 8.0 pH LAB URINALYSIS - AUTOMATED METHOD 05/20/2025 12:08 PM [facility] Leukocytes, Urine Negative Negative LAB URINALYSIS - AUTOMATED METHOD 05/20/2025 12:08 PM [facility] Nitrite, Urine Negative Negative LAB URINALYSIS - AUTOMATED METHOD 05/20/2025 12:08 PM [facility] Protein, Urine Negative <=Trace mg/dL LAB URINALYSIS - AUTOMATED METHOD 05/20/2025 12:08 PM [facility] Glucose, Urine Negative Negative mg/dL LAB URINALYSIS - AUTOMATED METHOD 05/20/2025 12:08 PM [facility] Ketones, Urine Negative Negative mg/dL LAB URINALYSIS - AUTOMATED METHOD 05/20/2025 12:08 PM [facility] Urobilinogen, Urine 0.2 0.2 - 1.0 mg/dL LAB URINALYSIS - AUTOMATED METHOD 05/20/2025 12:08 PM [facility] Bilirubin, Urine Negative Negative LAB URINALYSIS - AUTOMATED METHOD 05/20/2025 12:08 PM [facility] Blood, Urine Negative Negative LAB URINALYSIS - AUTOMATED METHOD 05/20/2025 12:08 PM [facility] Urine Urine specimen obtained by clean catch procedure / Unknown Non-blood Collection / Unknown 05/20/2025 10:25 AM EDT 05/20/2025 10:25 AM EDT us Kwame Mcniel MD LAB URINE ORDERABLES Final R esult Performing Organization Address City/[facility]/ZIP Co de Phone Number [facility] [address] [place] [address], [place] [phone] * Thyroid stimulating hormone with reflex to free t4 and free t3 (05/20/2025 10:25 AM EDT) TSH 1.10 0.40 - 4.00 mcIU/mL LAB CHEMISTRY METHOD 05/20/2025 1:27 PM EDT [facility] Blood Venous blood specimen / Unknown Venipuncture / Unknown 05/20/2025 10:25 AM EDT 05/20/2025 10:25 AM EDT us Kwame Mcneil MD LAB BLOOD ORDERABLES Final R esult Performing Organization Address City/[facility]/ZIP Co de Phone Number [facility] [address] [place] [address], [place] [phone] * (ABNORMAL) Vitamin B12 and folate (05/20/2025 10:25 AM EDT) Vitamin B-12 385 250 - 900 pcg/mL LAB CHEMISTRY METHOD 05/20/2025 1:17 PM EDT [facility] Folate >20.0(H) 2.8 - 17.0 ng/ml LAB CHEMISTRY METHOD 05/20/2025 1:17 PM EDT [facility] Blood Venous blood specimen / Unknown Venipuncture / Unknown 05/20/2025 10:25 AM EDT 05/20/2025 10:25 AM EDT us Kwame Mcneil MD LAB BLOOD ORDERABLES Final R esult Performing Organization Address City/[facility]/ZIP Co de Phone Number [facility] [address] [place] [address], [place] [phone] * (ABNORMAL) Lipid panel with reflex to direct LDL (05/20/2025 10:25 AM EDT) Cholesterol 183 0 - 200 mg/dL LAB CHEMISTRY METHOD 05/20/2025 1:17 PM EDT [facility] Triglycerides 312(H) 0 - 150 mg/dL LAB CHEMISTRY METHOD 05/20/2025 1:17 PM EDT [facility] HDL 39(L) >=40 mg/dL LAB CHEMISTRY METHOD 05/20/2025 1:17 PM EDT [facility] LDL Calculated 82 0 - 100 mg/dL LAB CHEMISTRY METHOD 05/20/2025 1:17 PM EDT [facility] VLDL Cholesterol Ajit 62.4 mg/dL LAB CHEMISTRY METHOD 05/20/2025 1:17 PM EDT [facility] Non HDL Chol. (LDL+VLDL) 144 <145 mg/dL LAB CHEMISTRY METHOD 05/20/2025 1:17 PM EDT [facility] Chol/HDL Ratio 4.7(H) 0.0 - 4.4 LAB CHEMISTRY METHOD 05/20/2025 1:17 PM EDT [facility] Blood Venous blood specimen / Unknown Venipuncture / Unknown 05/20/2025 10:25 AM EDT 05/20/2025 10:25 AM EDT Kwame Mcneil MD LAB BLOOD ORDERABLES Final R esult [facility] [address] [place] [address], [place] [phone] * (ABNORMAL) CBC auto differential (05/20/2025 10:25 AM EDT) WBC 7.5 4.8 - 10.8 K/mcL LAB HEMETOLOGY METHOD 05/20/2025 11:56 AM [facility] RBC 4.70 3.80 - 4.80 M/mcL LAB HEMETOLOGY METHOD 05/20/2025 11:56 AM [facility] Hemoglobin 15.5 11.5 - 16.0 g/dL LAB HEMETOLOGY METHOD 05/20/2025 11:56 AM [facility] Hematocrit 45.3 35.0 - 47.0 % LAB HEMETOLOGY METHOD 05/20/2025 11:56 AM [facility] MCV 96.8 79.0 - 98.0 FL LAB HEMETOLOGY METHOD 05/20/2025 11:56 AM [facility] MCH 33.1(H) 27.0 - 32.0 pcg LAB HEMETOLOGY METHOD 05/20/2025 11:56 AM [facility] MCHC 34.2 32.0 - 37.0 g/dL LAB HEMETOLOGY METHOD 05/20/2025 11:56 AM [facility] RDW 11.7 11.0 - 15.0 % LAB HEMETOLOGY METHOD 05/20/2025 11:56 AM [facility] Platelets 326 130 - 400 K/mcL LAB HEMETOLOGY METHOD 05/20/2025 11:56 AM [facility] MPV 9.9 7.0 - 11.0 FL LAB HEMETOLOGY METHOD 05/20/2025 11:56 AM [facility] NRBC 0.0 <1.0 % LAB HEMETOLOGY METHOD 05/20/2025 11:56 AM [facility] NRBC Absolute 0.00 <0.10 K/mcL LAB HEMETOLOGY METHOD 05/20/2025 11:56 AM [facility] Neutrophils Relative 60.1 % LAB HEMETOLOGY METHOD 05/20/2025 11:56 AM [facility] Lymphocytes Relative 30.1 % LAB HEMETOLOGY METHOD 05/20/2025 11:56 AM [facility] Monocytes Relative 6.8 % LAB HEMETOLOGY METHOD 05/20/2025 11:56 AM [facility] Eosinophils Relative 1.9 % LAB HEMETOLOGY METHOD 05/20/2025 11:56 AM [facility] Basophils Relative 0.7 % LAB HEMETOLOGY METHOD 05/20/2025 11:56 AM [facility] Immature Granulocytes Relative 0.4 % LAB HEMETOLOGY METHOD 05/20/2025 11:56 AM [facility] Neutrophils Absolute 4.52 1.50 - 7.00 K/mcL LAB HEMETOLOGY METHOD 05/20/2025 11:56 AM [facility] Lymphocytes Absolute 2.26 1.00 - 5.00 K/mcL LAB HEMETOLOGY METHOD 05/20/2025 11:56 AM [facility] Monocytes Absolute 0.51 0.20 - 1.00 K/mcL LAB HEMETOLOGY METHOD 05/20/2025 11:56 AM [facility] Eosinophils Absolute 0.14 0.00 - 0.50 K/mcL LAB HEMETOLOGY METHOD 05/20/2025 11:56 AM [facility] Basophils Absolute 0.05 0.00 - 0.20 K/mcL LAB HEMETOLOGY METHOD 05/20/2025 11:56 AM [facility] Immature Granulocytes Absolute 0.03 0.00 - 0.03 K/mcL LAB HEMETOLOGY METHOD 05/20/2025 11:56 AM [facility] Blood Venous blood specimen / Unknown Venipuncture / Unknown 05/20/2025 10:25 AM EDT 05/20/2025 10:25 AM EDT us Rocio Washington DO LAB BLOOD ORDERABLES Final Resu lt Performing Organization Address [facility] Co de Phone Number [facility] [address] [place] [address], [place] [phone] * Borrelia burgdorferi antibody (05/20/2025 10:25 AM EDT) [facility] Lyme Ab Negative Negative LAB CHEMISTRY METHOD 05/20/2025 12:46 PM EDT [facility] Comment: No laboratory evidence of infection with B. burgdorferi (Lyme disease). Negative results may occur in patients recently infected (<=14 days) with B. burgdorferi. If recent infection is suspected, repeat testing on a new sample collected in 7- 14 days is recommended. Blood Venous blood specimen / Unknown Venipuncture / Unknown 05/20/2025 10:25 AM EDT 05/20/2025 10:25 AM EDT us Rocio Washington DO LAB BLOOD ORDERABLES Final Resu lt Performing Organization Address [facility] Co de Phone Number [facility] [address] [place] [address], [place] [phone] * Vitamin D 25 hydroxy (05/20/2025 10:25 AM EDT) [facility] Vit D, 25-Hydroxy 33.8 30.0 - 80.0 ng/mL LAB CHEMISTRY METHOD 05/20/2025 1:26 PM EDT [facility] Blood Venous blood specimen / Unknown Venipuncture / Unknown 05/20/2025 10:25 AM EDT 05/20/2025 10:25 AM EDT us Rocio Washington DO LAB BLOOD ORDERABLES Final Resu lt Performing Organization Address City/[facility]/ZIP Co de Phone Number [facility] [address] [place] [address], [place] [phone] * Sedimentation rate (05/20/2025 10:25 AM EDT) Sed Rate <1 0 - 20 mm/hr LAB HEMETOLOGY METHOD 05/20/2025 12:32 PM EDT [facility] Blood Venous blood specimen / Unknown Venipuncture / Unknown 05/20/2025 10:25 AM EDT 05/20/2025 10:25 AM EDT us Rocio Washington DO LAB BLOOD ORDERABLES Final Resu lt Performing Organization Address City/[facility]/ZIP Co de Phone Number [facility] [address] [place] [address], [place] [phone] * Triiodothyronine total (05/20/2025 10:25 AM EDT) T3, Total 106.03 60.00 - 181.00 ng/dL LAB CHEMISTRY METHOD 05/20/2025 1:26 PM EDT [facility] Blood Venous blood specimen / Unknown Venipuncture / Unknown 05/20/2025 10:25 AM EDT 05/20/2025 10:25 AM EDT us Rocio Washington DO LAB BLOOD ORDERABLES Final Resu lt [facility] [address] [place] [address], [place] [phone] * Thyroid stimulating hormone (05/20/2025 10:25 AM EDT) TSH 1.10 0.40 - 4.00 mcIU/mL LAB CHEMISTRY METHOD 05/20/2025 1:27 PM EDT [facility] Blood Venous blood specimen / Unknown Venipuncture / Unknown 05/20/2025 10:25 AM EDT 05/20/2025 10:25 AM EDT us Rocio Washington DO LAB BLOOD ORDERABLES Final Resu lt Performing Organization Address [facility]/ZIP Co de Phone Number [facility] [address] [place] [address], [place] [phone] * Thyroxine total (05/20/2025 10:25 AM EDT) T4, Total 9.0 4.5 - 10.9 mcg/dL LAB CHEMISTRY METHOD 05/20/2025 1:51 PM EDT [facility] Blood Venous blood specimen / Unknown Venipuncture / Unknown 05/20/2025 10:25 AM EDT 05/20/2025 10:25 AM EDT us Rocio Washington DO LAB BLOOD ORDERABLES Final Resu lt Performing Organization Address [facility]/ZIP Co de Phone Number [facility] [address] [place] [address], [place] [phone] * Vitamin B12 (05/20/2025 10:25 AM EDT) [facility] Vitamin B-12 385 250 - 900 pcg/mL LAB CHEMISTRY METHOD 05/20/2025 1:17 PM EDT [facility] Blood Venous blood specimen / Unknown Venipuncture / Unknown 05/20/2025 10:25 AM EDT 05/20/2025 10:25 AM EDT us Rocio Washington DO LAB BLOOD ORDERABLES Final Resu lt Performing Organization Address City/[facility]/ZIP Co de Phone Number [facility] [address] [place] [address], [place] [phone] * Comprehensive metabolic panel (05/20/2025 10:25 AM EDT) Pathologist [facility] Sodium 139 133 - 145 mmol/L LAB CHEMISTRY METHOD 05/20/2025 1:17 PM [facility] Potassium 4.3 3.5 - 5.5 mmol/L LAB CHEMISTRY METHOD 05/20/2025 1:17 PM [facility] Chloride 105 96 - 110 mmol/L LAB CHEMISTRY METHOD 05/20/2025 1:17 PM [facility] CO2 30 21 - 32 mmol/L LAB CHEMISTRY METHOD 05/20/2025 1:17 PM [facility] Anion Gap 4 3 - 11 LAB CHEMISTRY METHOD 05/20/2025 1:17 PM [facility] Glucose 97 70 - 100 mg/dL LAB CHEMISTRY METHOD 05/20/2025 1:17 PM [facility] BUN 9 5 - 25 mg/dL LAB CHEMISTRY METHOD 05/20/2025 1:17 PM [facility] Creatinine 0.80 0.50 - 1.10 mg/dL LAB CHEMISTRY METHOD 05/20/2025 1:17 PM [facility] eGFR 91 >=60 mL/min/1. 73m2 LAB CHEMISTRY METHOD 05/20/2025 1:17 PM [facility] Comment:Calculation based on the Chronic Kidney Disease Epidemiology Collaboration (CKD-EPI) equation refit without adjustment for race. BUN/Creatinine Ratio 11.3 LAB CHEMISTRY METHOD 05/20/2025 1:17 PM [facility] Calcium 8.9 8.5 - 10.5 mg/dL LAB CHEMISTRY METHOD 05/20/2025 1:17 PM [facility] AST (SGOT) 17 10 - 42 unit/L LAB CHEMISTRY METHOD 05/20/2025 1:17 PM [facility] ALT (SGPT) 25 10 - 60 unit/L LAB CHEMISTRY METHOD 05/20/2025 1:17 PM [facility] Alkaline Phosphatase 74 42 - 121 unit/L LAB CHEMISTRY METHOD 05/20/2025 1:17 PM [facility] Total Protein 7.4 6.0 - 8.0 g/dL LAB CHEMISTRY METHOD 05/20/2025 1:17 PM EDT [facility] Albumin 4.4 3.2 - 5.0 g/dL LAB CHEMISTRY METHOD 05/20/2025 1:17 PM EDT [facility] Total Bilirubin 0.5 0.0 - 1.4 mg/dL LAB CHEMISTRY METHOD 05/20/2025 1:17 PM EDT [facility] Blood Venous blood specimen / Unknown Venipuncture / Unknown 05/20/2025 10:25 AM EDT 05/20/2025 10:25 AM EDT us Rocio Washington DO LAB BLOOD ORDERABLES Final Resu lt [facility] [address] [place] [address], from Last 3 Months Insurance [facility] [facility] Care Teams Booster Station Operator Relationship Specialty Start Date End Date wKame Mcneil MD [address] [place] [address] Dr [address] EZRA Garcia PCP - General Internal Medicine 05/20/25
--- OUTSIDE RECORDS SUMMARY | 2025-06-03 11:51 | XMS_ITS | Clinical Summary ---
Author Organization [facility] Address [address] [place] [address] Care Team Providers Care Manual Arts Therapy Teacher Name Role Phone Unavailable Primary Care Provider Unavailabl e Medications Medication Sig Dispensed Refills Start Date End Date Status betamethasone dipropionate (DIPROSONE) 0.05 % ointment APPLY A SMALL AMOUNT TWICE A DAY APPLY TO LEFT EYELID 0 01/31/2023 Active Szvbrdgvkq-BJRK-Mdzvbw ne 50-300-40 MG CAPS TAKE 1 CAPSULE [...] as needed. for pain 0 01/10/2023 Active Bzlqxzom-Rhxpkotgot-Si lymyxin ([facility] Antibiotic) 3.5-400-5000 OINT APPLY A [...] Cancer Screening (Colonoscopy) 2022 Influenza Vaccine (#1) 2025 08/21/2018 Pneumococcal Vaccine Aged Out No long er eligible based on patient's age to complete this topic RSV Ped < 20 months Aged Out No longe r eligible based on patient's age to complete this topic
== END 2025-06-03 11:27 | disposition home or self-care (01) ==
LOC: HO.HMCH 10:44
PROVIDERS: PCP Internal Medicine; Visit Provider Internal Medicine
DX: G43.909 Migraine, unspecified, not intractable, without status migrainosus (principal); Z68.30 Body mass index [BMI] 30.0-30.9, adult; E66.9 Obesity, unspecified; E78.1 Pure hyperglyceridemia; M50.90 Cervical disc disorder, unspecified, unspecified cervical region; M79.7 Fibromyalgia; F41.9 Anxiety disorder, unspecified

== ENCOUNTER → 2025-06-03 10:43 | Outpatient (BNVA) | payer OTHER, SELFPAY | PROVIDERS: PCP Internal Medicine; Visit Provider Internal Medicine | DX: G43.909 Migraine, unspecified, not intractable, without status migrainosus (principal); E78.1 Pure hyperglyceridemia; M50.90 Cervical disc disorder, unspecified, unspecified cervical region; M79.7 Fibromyalgia; F41.9 Anxiety disorder, unspecified; E66.9 Obesity, unspecified; Z68.30 Body mass index [BMI] 30.0-30.9, adult; Z79.899 Other long term (current) drug therapy; Z13.31 Encounter for screening for depression; Z13.39 Encounter for screening examination for other mental health and behavioral disorders | CPT/HCPCS: 96127; 99212 ==